=== PATIENT | male | born 1955 | race Caucasian/White ===

== ENCOUNTER 2017-03-19 20:47 | Emergency (ER) | payer BC ==
[2017-03-19] MEDS ORDERED: BACIGUENT PACKET TP ONE (22:12)
[2017-03-19] MEDS ORDERED: TENIVAC VIAL IM ONE ×2 (22:12→22:23)
[2017-03-19] MEDS ORDERED: XYLOCAINE 1% HCL 20 ML MDV IJ ONE (22:12)
[2017-03-19] MEDS ORDERED: Rocephin 1000 MG INJ IM ONE (22:13)
[2017-03-19] MEDS ORDERED: NORCO 5/325 MG PO ONE (22:14)
[2017-03-19] MEDS ORDERED: BACIGUENT PACKET ONE (22:20)
--- NOTE | 2017-03-19 22:20 | ERPHSYRPT ---
- History of Present Illness Time Seen by Provider: 03/19/17 22:09 Source: patient Exam Limitations: no limitations Physician History: ABOUT 90 MINUTES AGO AT HOME PT WAS GRINDING A NEW CLEAN PIECE OF METAL. THE APPLIED ANTHROPOLOGIST SLIPPED AND LACERATED PT'S LEFT INDEX FINGER. LAST TETANUS IS UNKNOWN. PT DENIES NUMBNESS AT THE LEFT INDEX FINGER TIP. Allergies/Adverse Reactions: No Known Drug Allergies Allergy (Verified 03/19/17 22:20) Home Medications: Enalapril Maleate [Vasotec] 20 mg PO BID 12/24/13 [History] Hydrochlorothiazide 25 mg [hydroDIURIL 25 MG] 25 mg PO DAILY 12/24/13 [ History] Metformin HCl 1000 mg [Glucophage 1000 MG] 1,000 mg PO BID 12/24/13 [History] Atorvastatin Calcium 40 mg PO DAILY 06/10/14 [History] Meloxicam 15 mg [Meloxicam 15 MG] 15 mg PO DAILY 06/10/14 [History] Metoprolol Tartrate 100 mg PO DAILY 06/10/14 [History] Amlodipine Besylate 5 mg [Norvasc 5 mg] 0 mg PO HS 03/19/17 [History] Cetirizine HCl [Zyrtec] 10 mg PO HS 03/19/17 [History] Hx Tetanus, Diphtheria Vaccination/Date Given: Yes Hx Influenza Vaccination/Date Given: No Hx Pneumococcal Vaccination/Date Given: No - Review of Systems Skin: Other (LACERATION OF THE LEFT INDEX FINGER TONIGHT.) - Past Medical History Pertinent Past Medical History: Yes Neurological History: Peripheral Neuropathy Cardiac History: High Cholesterol, Hypertension Endocrine Medical History: Diabetes Type II Other Medical History: neuropathy - Past Surgical History Past Surgical History: Yes Cardiac: CABG Gastrointestinal: Appendectomy Other Surgical History: tonsillectomy, sinus surgery, - Social History Smoking Status: Never smoker Exposure to second hand smoke: No Drug Use: none Patient Lives Alone: No - Nursing Vital Signs Nursing Vital Signs: Initial Vital Signs Temperature 98.2 F Temperature Source Oral Pulse Rate 60 Respiratory Rate 16 Blood Pressure [] 139/95 Pain Intensity 3 - Physical Exam General Appearance: alert Shoulder Exam: normal ROM Elbow/Forearm Exam: normal ROM Wrist Exam: normal ROM Hand Exam: normal ROM, laceration (1.5 CM LACERATION OVER THE EXTENSOR ASPECT OF THE INDEX FINGER PIP; LEFT INDEX FINGER HAS FULL ROM, SENSATION AND GOOD CAPILLARY REFILL AT THE TIP.) Neuro/Tendon Exam: normal sensation, normal motor functions Mental Status Exam: alert, cooperative SpO2 Interpretation: normal SpO2: 94 Oxygen Delivery: Room Air Procedures - Laceration/Wound Repair Left Hand Wound Location: Left, hand (INDEX FINGER ) Wound Length (cm): 1.5 Wound's Depth, Shape: superficial Wound Explored: clean Irrigated: Yes Hibiclens Prep: Yes Anesthesia: 1% Lidocaine Volume Anesthetic (ccs): 1 Wound Repaired With: sutures Suture Size/Type: 4-0, prolene Number of Sutures: 5 Layer Closure?: No - Course Nursing assessment & vital signs reviewed: Yes - Radiology Exams Left Hand X-ray Interpretation: Interpreted by me, No Fracture Ordered Tests: Active Orders 24 hr Category Date Time Status Prepare for Sutures STAT Care 03/19/17 22:12 Active Sutures STAT Care 03/19/17 22:13 Active Wound Care STAT Care 03/19/17 22:12 Active HAND (MINIMUM 3 VIEWS) Stat Exams 03/19/17 22:14 Taken Medication Summary Discontinued Medications Generic Name Dose Route Start Last Admin Trade Name Freq PRN Reason Stop Dose Admin Hydrocodone Bitart/Acetaminophen 1 tab 03/19/17 22:14 03/19/17 22:29 [place] 5/325 Mg PO 03/19/17 22:15 1 tab STAT ONE Administration Hydrocodone Bitart/Acetaminophen Confirm 03/19/17 22:22 [place] 5/325 Mg Administered 03/19/17 22:23 Dose 1 tab .ROUTE .STK-MED ONE Bacitracin 0.9 gm 03/19/17 22:12 03/19/17 22:30 Baciguent Packet TP 03/19/17 22:13 1 gm STAT ONE Administration Bacitracin Confirm 03/19/17 22:20 [place]uent Packet Administered 03/19/17 22:21 Dose 1 gm .ROUTE .STK-MED ONE Ceftriaxone Sodium 1,000 mg 03/19/17 22:13 03/19/17 22:28 Rocephin 1000 Mg Inj IM 03/19/17 22:14 1,000 mg STAT ONE Administration Ceftriaxone Sodium Confirm 03/19/17 22:22 Rocephin 1000 Mg Inj Administered 03/19/17 22:23 Dose 1,000 mg .ROUTE .STK-MED ONE Lidocaine HCl 5 ml 03/19/17 22:12 03/19/17 22:29 Xylocaine 1% Hcl 20 Ml Mdv IJ 03/19/17 22:13 5 ml STAT ONE Administration Lidocaine HCl Confirm 03/19/17 22:23 Xylocaine 1% Hcl 20 Ml Mdv Administered 03/19/17 22:24 Dose 1 ml .ROUTE .STK-MED ONE Lidocaine HCl Confirm 03/20/17 00:05 Xylocaine 1% Hcl 20 Ml Mdv Administered 03/20/17 00:06 Dose 1 ml .ROUTE .STK-MED ONE Tetanus/Diphtheria Toxoids Adsorbed 0.5 ml 03/19/17 22:12 03/19/17 22:44 Tenivac Vial IM 03/19/17 22:13 0.5 ml .ONCE ONE Administration Tetanus/Diphtheria Toxoids Adsorbed Confirm 03/19/17 22:23 Tenivac Vial Administered 03/19/17 22:24 Dose 0.5 ml IM .STK-MED ONE - Departure Time of Disposition: 00:32 Departure Disposition: Home Clinical Impression: 1.5 CM LACERATION OF THE LEFT INDEX FINGER Condition: Fair Critical Care Time: No Referrals: JAYNE FUENTES MD [Primary Care Provider] - Instructions: Care for a Laceration After Repair Additional Instructions: FOLLOW UP WITH PRIVATE DOCTOR TOMORROW. KEEP CLEAN & DRY. NEOSPORIN & BANDAGE DAILY TO LEFT INDEX FINGER WOUND FOR 10 DAYS. HAVE SUTURES REMOVED IN 10 DAYS. Prescriptions: Cephalexin Monohydrate [Keflex] 500 mg PO TID #30 capsule
[2017-03-19] MEDS ORDERED: Rocephin 1000 MG INJ ONE (22:22)
[2017-03-19] MEDS ORDERED: NORCO 5/325 MG ONE (22:22)
[2017-03-19] MEDS ORDERED: XYLOCAINE 1% HCL 20 ML MDV ONE (22:23)
[2017-03-20] MEDS ORDERED: XYLOCAINE 1% HCL 20 ML MDV ONE (00:05)
[2017-03-20 00:50] VITALS: BP 145/78; PULSE 61; O2SAT 97
--- NOTE | 2017-03-20 08:57 | XRAY ---
Indication: Laceration. Comparison: None 3 views of the left hand demonstrates distal second finger soft tissue laceration with overlying bandage material. No other bony, articular, or soft tissue abnormalities.
== END 2017-03-20 00:50 | disposition home or self-care (01) ==
LOC: ED 20:47
PROC: 0HQGXZZ Repair Left Hand Skin, External Approach (ICD-10-PCS; principal; 2017-03-19)
DX: S61.211A Laceration without foreign body of left index finger without damage to nail, initial encounter (principal); W31.89XA Contact with other specified machinery, initial encounter; E78.00 Pure hypercholesterolemia, unspecified; I10 Essential (primary) hypertension; E11.9 Type 2 diabetes mellitus without complications; Z79.899 Other long term (current) drug therapy
CPT/HCPCS: 12001; 73130; 90471; 90714; 96372; 99284; J0696; A9270-GY

== ENCOUNTER 2018-08-25 22:36 | Observation (INO) | payer BC ==
--- NOTE | 2018-08-25 23:20 | ERPHSYRPT ---
- History of Present Illness Time Seen by Provider: 08/25/18 23:17 Historian: patient, family Patient Subjective Stated Complaint: pt states about 6 pm he felt hot, left side of face felt numb, sweaty, and nauseous, has heaviness in his chest and a CORTES. saw Dr. Hooks on the and was sent for a chem stress test on the which was abnormal and showed afib, appt scheduled to see Dr. glaser wed. 08/26 Triage Nursing Assessment: pt brought to 3 after nurse assist getting pt out of family car at pt entrance. pt A/O, states no pain but heaviness in chest, nauseated. resp easy. SR on monitor. Physician History: The patient is a 63-year-old male with his complaining of a sudden onset of chest tightness and not feeling well around 6 PM today or 5 hours ago. Earlier in the day he vomited. He has a cardiology appointment tomorrow and was told if anything happens today he is to come to the ER immediately. He denies shortness of breath. He denies sweating. He denies chest pain but he says his chest is tight. He denies lightheadedness. His past medical history is significant for A. fib, hypertension, high cholesterol, diabetes, and arthritis. Timing/Duration: today, hour(s) (5), gradual onset, worse Activities at Onset: none Quality: tightness Location: central Chest Pain Radiation: no radiation Severity of Pain-Max: none Severity of Pain-Current: none Modifying Factors: Improves With: nothing Associated Symptoms: nausea, vomiting, No abdominal pain, No dizziness Prior Chest Pain/Cardiac Workup: no prior chest pain Nitro Today/Relief: no nitro taken today Aspirin Treatment Today: 81 mg x 4, provided by ED Allergies/Adverse Reactions: No Known Drug Allergies Allergy (Verified 03/19/17 22:20) Home Medications: Enalapril Maleate [Vasotec] 20 mg PO BID 12/24/13 [History] Hydrochlorothiazide 25 mg [hydroDIURIL 25 MG] 25 mg PO DAILY 12/24/13 [ History] Metformin HCl 1000 mg [Glucophage 1000 MG] 1,000 mg PO BID 12/24/13 [History] Atorvastatin Calcium 40 mg PO DAILY 06/10/14 [History] Meloxicam 15 mg [Meloxicam 15 MG] 15 mg PO DAILY 06/10/14 [History] Metoprolol Tartrate 100 mg PO DAILY 06/10/14 [History] Amlodipine Besylate 5 mg [Norvasc 5 mg] 0 mg PO HS 03/19/17 [History] Cetirizine HCl [Zyrtec] 10 mg PO HS 03/19/17 [History] Hx Tetanus, Diphtheria Vaccination/Date Given: Yes Hx Influenza Vaccination/Date Given: No Hx Pneumococcal Vaccination/Date Given: No Immunizations Up to Date: Yes - Review of Systems Constitutional: No Fever, No Chills Eyes: No Symptoms Ears, Nose, & Throat: No Symptoms Respiratory: No Cough, No Dyspnea Cardiac: No Chest Pain, No Edema, No Syncope Abdominal/Gastrointestinal: No Abdominal Pain, No Nausea, No Vomiting, No Diarrhea Genitourinary Symptoms: No Dysuria Musculoskeletal: No Back Pain, No Neck Pain Skin: No Rash Neurological: No Dizziness, No Focal Weakness, No Sensory Changes Psychological: No Symptoms Endocrine: No Symptoms Hematologic/Lymphatic: No Symptoms Immunological/Allergic: No Symptoms All Other Systems: Reviewed and Negative - Past Medical History Pertinent Past Medical History: Yes Neurological History: Peripheral Neuropathy Cardiac History: Hypertension Respiratory History: No Pertinent History Endocrine Medical History: Diabetes Type II Musculoskeletal History: Fractures, Osteoarthritis Psycho-Social History: No Pertinent History Other Medical History: CABG x2, 1999 - Past Surgical History Past Surgical History: Yes Cardiac: CABG Gastrointestinal: Appendectomy Other Surgical History: tonsillectomy, sinus surgery, - Social History Smoking Status: Never smoker Exposure to second hand smoke: No Drug Use: none Patient Lives Alone: No - Nursing Vital Signs Nursing Vital Signs: Initial Vital Signs Temperature 98.6 F 08/25/18 22:36 Pulse Rate 59 L 08/25/18 22:36 Respiratory Rate 18 08/25/18 22:36 Blood Pressure 185/101 08/25/18 22:36 O2 Sat by Pulse Oximetry 96 08/25/18 22:36 Pain Scale Pain Intensity 2 - Physical Exam General Appearance: mild distress Eye Exam: PERRL/EOMI, eyes nml inspection Ears, Nose, Throat Exam: normal ENT inspection, moist mucous membranes Neck Exam: normal inspection, non-tender, supple, full range of motion Respiratory Exam: normal breath sounds, lungs clear, No respiratory distress Cardiovascular Exam: regular rate/rhythm, normal heart sounds Gastrointestinal/Abdomen Exam: soft, No tenderness, No mass Rectal Exam: not done Back Exam: normal inspection, No CVA tenderness, No vertebral tenderness Extremity Exam: normal inspection, normal range of motion Neurologic Exam: alert, oriented x 3, cooperative, normal mood/affect, sensation nml, No motor deficits Skin Exam: normal color, warm, dry SpO2 Interpretation: normal SpO2: 96 Oxygen Delivery: Room Air - Course EKG Interpreted by Me: RATE, Sinus Rhythm, A-fib, NORMAL INTERVALS, NORMAL QRS, NORMAL ST-T - Radiology Exams Chest X-ray Interpretation: Interpreted by me, Negative Ordered Tests: Active Orders 24 hr Category Date Time Status Manager Social Media STAT Care 08/25/18 23:22 Active EKG-ER Only STAT Care 08/25/18 23:22 Active IV Insertion STAT Care 08/25/18 23:22 Active Oxygen-ED Only NASAL CANNULA 2 lpm Care 08/25/18 23:22 Active Pulse Oximetry (ED) STAT Care 08/25/18 23:22 Active CHEST 1 VIEW (PORTABLE) Stat Exams 08/25/18 23:22 Taken TROPONIN Q3H Lab 08/26/18 02:30 Ordered TROPONIN Q3H Lab 08/26/18 05:30 Ordered TROPONIN Q3H Lab 08/26/18 08:30 Ordered TROPONIN Q3H Lab 08/26/18 11:30 Ordered Medication Summary Discontinued Medications Generic Name Dose Route Start Last Admin Trade Name Freq PRN Reason Stop Dose Admin Aspirin 324 mg 08/25/18 23:22 08/25/18 23:47 Baby Aspirin 81 Mg Chew PO 08/25/18 23:23 324 mg STAT ONE Administration Aspirin Confirm 08/25/18 23:45 Baby Aspirin 81 Mg Chew Administered 08/25/18 23:46 Dose 324 mg .ROUTE .STK-MED ONE Lab/Rad Data: Laboratory Result Diagrams 08/25/18 00:06 08/25/18 00:06 Laboratory Results 08/25/18 08/25/18 08/25/18 Range/Units 00:06 00:06 00:06 WBC 8.1 (4.0-10.5) K/mm3 RBC 6.02 H (4.1-5.6) M/mm3 Hgb 17.3 (12.5-18.0) gm/dl Hct 51.7 H (42-50) % MCV 85.9 (78-100) fl MCH 28.7 (26-32) pg MCHC 33.5 (32-36) g/dl RDW 14.9 H (11.5-14.0) % Plt Count 196 (150-450) K/mm3 MPV 11.3 H (6-9.5) fl Gran % 57.8 (36.0-66.0) % Eos # (Auto) 0.32 (0-0.5) Absolute Lymphs (auto) 2.28 (1.0-4.6) Absolute Monos (auto) 0.81 (0.0-1.3) Lymphocytes % 28.1 (24.0-44.0) % Monocytes % 10.0 (0.0-12.0) % Eosinophils % 3.9 (0.00-5.0) % Basophils % 0.2 (0.0-0.4) % Absolute Granulocytes 4.68 (1.4-6.9) Basophils # 0.02 (0-0.4) Sodium 138 (137-145) mmol/L Potassium 3.3 L (3.5-5.1) mmol/L Chloride 100 (98-107) mmol/L Carbon Dioxide 26 (22-30) mmol/L Anion Gap 15.6 H (5-15) MEQ/L BUN 21 H (9-20) mg/dL Creatinine 0.97 (0.66-1.25) mg/dL Estimated GFR > 60.0 ML/MIN Glucose 104 (74-106) mg/dL Calcium 9.2 (8.4-10.2) mg/dL Total Bilirubin 0.80 (0.2-1.3) mg/dL AST 24 (17-59) U/L ALT 20 (0-50) U/L Alkaline Phosphatase 137 H (38-126) U/L Troponin I < 0.012 (0.000-0.034) ng/mL NT-Pro-B Natriuret Pep 438 (0-900) pg/mL Serum Total Protein 8.1 (6.3-8.2) g/dL Albumin 4.6 (3.5-5.0) g/dL - Progress Progress: improved Air Movement: good Blood Culture(s) Obtained: No Antibiotics given: No Discussed with Dr.: Manuel (for Dr Hooks) Will see patient in: hospital (observation) Counseled pt/family regarding: lab results, diagnosis, rad results - Departure Time of Disposition: 01:10 Departure Disposition: Observation (per Dr Manuel for Dr Hooks) Clinical Impression: Chest pain Condition: Stable Critical Care Time: No Referrals: JAYNE HOOKS MD [Primary Care Provider] -
[2018-08-25] MEDS ORDERED: BABY ASPIRIN 81 MG CHEW PO ONE (23:22)
[2018-08-25] MEDS ORDERED: BABY ASPIRIN 81 MG CHEW ONE (23:45)
[2018-08-26 00:11] LABS: BASOPHIL % 0.2 % (0.0-0.4); Basophil (Absolute #) 0.02 (0-0.4); Eosinophil % 3.9 % (0.00-5.0); Eosinophil (Absolute #) 0.32 (0-0.5); Granulocyte Absolute (ANC) 4.68 (1.4-6.9); Granulocytes % 57.8 % (36.0-66.0); Hematocrit 51.7 % (42-50); Hemoglobin 17.3 gm/dl (12.5-18.0); Lymphocyte (Absolute #) 2.28 (1.0-4.6); Lymphocytes % 28.1 % (24.0-44.0); Mean Cell Volume 85.9 fl (78-100); Mean Corpuscular Hemoglobin 28.7 pg (26-32); Mean Corpuscular Hgb Concent. 33.5 g/dl (32-36); Mean Platelet Volume 11.3 fl (6-9.5); Monocyte (Absolute #) 0.81 (0.0-1.3); Platelet Count 196 K/mm3 (150-450); Red Blood Count 6.02 M/mm3 (4.1-5.6); Red Cell Distribution Width 14.9 % (11.5-14.0); White Blood Count 8.1 K/mm3 (4.0-10.5)
[2018-08-26 00:38] LABS: ALBUMIN 4.6 g/dL (3.5-5.0); ALKALINE PHOSPHATASE 137 U/L (38-126); ANION GAP 15.6 MEQ/L (5-15); BLOOD UREA NITROGEN 21 mg/dL (9-20); CHLORIDE 100 mmol/L (98-107); Calcium 9.2 mg/dL (8.4-10.2); Carbon Dioxide 26 mmol/L (22-30); Creatinine 1 0.97 mg/dL (0.66-1.25); Glucose 104 mg/dL (74-106); NT PRO BNP 438 pg/mL (0-900); Potassium 3.3 mmol/L (3.5-5.1); SGOT/AST 24 U/L (17-59); SGPT/ALT 20 U/L (0-50); SODIUM 138 mmol/L (137-145); Total Protein 8.1 g/dL (6.3-8.2)
[2018-08-26] MEDS ORDERED: Klor Con 10 MEQ PO ONE ×2 (01:20→01:23)
[2018-08-26] MEDS ORDERED: Zofran 4 MG/2 ML VIAL IV PRN (02:32)
[2018-08-26] MEDS ORDERED: MAALOX ES 30 ML UNIT DOSE PO PRN (02:32)
[2018-08-26] MEDS ORDERED: TYLENOL 325 MG PO PRN (02:32)
[2018-08-26] MEDS ORDERED: MILK OF MAGNESIA 30 ML PO PRN (02:32)
[2018-08-26] MEDS ORDERED: Senokot-S Tablet PO PRN (02:32)
[2018-08-26 06:45] LABS: Risk Ratio 3.8
[2018-08-26 07:25] VITALS: BP 157/83; PULSE 62; O2SAT 91
--- NOTE | 2018-08-26 09:11 | XRAY ---
Indication: Chest pain. Chest tightness. Comparison: None Portable chest remains clear again with a few incidental calcified granulomas. Heart is not enlarged for AP portable technique and demonstrates CABG surgery. Bony thorax intact with minimal degenerative changes. Impression: Nonacute chest with chronic features.
[2018-08-26] MEDS ORDERED: Sodium Chloride 0.9% 10 ML FLUSH Syringe IV PRN (09:12)
[2018-08-26] MEDS ORDERED: Ecotrin 325 MG PO SCH (10:00)
--- NOTE | 2018-08-26 11:05 | SSS ---
DISCHARGE DIAGNOSES: 1) ANGINA PECTORIS. 2) CORONARY ARTERY DISEASE. HISTORY: The patient is a 63 year-old white male patient who reportedly had some chest heaviness beginning approximately 2000 hours lasting to approximately midnight. He presented himself to the emergency room. He apparently had a work up has been in process having had a Cardiolite stress test which showed some abnormalities. He had been set up to see Dr. Conroy. He actually has an appointment at 1000 hours this morning to see him. The patient reports that he currently has no chest pain. His troponins have all been negative. He does have history of coronary artery bypass grafting in 1999 that he had in [place]. He does not follow up with a lumber straightened as he did not want to see a lumber straightened after his initial evaluation and treatment so he has not been evaluated for several years. His history is otherwise significant for diabetes mellitus type 2. He has diabetic neuropathy, hypertension. He had some problems with his left foot with a fracture. HOME MEDICATIONS: Currently include amlodipine 5 mg a day. He is on Augmentin 875 mg b.i.d. for chest cold. Eliquis 5 mg b.i.d., aspirin 81 mg a day, atorvastatin 40 mg a day, Invokana 300 mg daily, Zyrtec 10 mg daily, Vasotec 20 mg b.i.d., gabapentin 600 mg at night, glimepiride 2 mg daily, levothyroxine 75 mcg daily, Meloxicam 15 mg daily, Metformin 1,000 mg b.i.d. ALLERGIES: NKDA. PHYSICAL EXAMINATION: Revealed an obese white male patient who is quite large 6' 5". HEENT: Normocephalic, atraumatic. Pupils equal round reactive to light. Extraocular movements intact. Oropharynx is pink and moist. NECK: Supple without lymphadenopathy, thyromegaly or JVD. CHEST: Clear to auscultation with good air movement bilaterally. HEART: Regular rate and rhythm without murmurs, rubs or gallops. ABDOMEN: Soft, nontender, nondistended without hepatosplenomegaly or masses. EXTREMITIES: Without cyanosis or clubbing. There is some edema present. LAB DATA AND TESTS: His troponins were all negative at less than 0.02 at 0600 hours this morning. His lipid panel showed HDL of 25, LDL 63. He had random glucose of 104, BUN 21, creatinine 0.97. Potassium slightly low at 3.3. Electrolytes normal. Liver enzymes were normal. ProBNP 438. His chest x-ray was nonacute with chronic features. EKG shows sinus braydycardia with no acute changes. ASSESSMENT: A patient with unstable angina pectoris with abnormal Cardiolite stress test with appointment to see lumber straightened this morning. He has ruled out of myocardial infarction. We will discharge him and try to get him to see Dr. Conroy as soon as we can this morning. We are expediting his discharge so he can make that appointment. He will follow up with Dr. Hooks in his office next week as well and continue his home medications.
[2018-08-26] MEDS ORDERED: Sodium Chloride 0.9% 10 ML FLUSH Syringe IV SCH (14:00)
== END 2018-08-26 09:52 | disposition home or self-care (01) ==
LOC: ED 22:36 → MED SURG 08-26 02:24
PROVIDERS: ADMIT Family Medicine; ATTEND Family Medicine
DX: I20.0 Unstable angina (principal); I25.810 Atherosclerosis of coronary artery bypass graft(s) without angina pectoris; E11.42 Type 2 diabetes mellitus with diabetic polyneuropathy; Z79.4 Long term (current) use of insulin; I10 Essential (primary) hypertension; E78.00 Pure hypercholesterolemia, unspecified; Z79.01 Long term (current) use of anticoagulants; Z79.899 Other long term (current) drug therapy
CPT/HCPCS: 36000; 36415; 71045; 80053; 80061; 82962; 83721; 83880; 84484; 85025; 93005; 93041; 93268; 99285; A9270-GY; G0378

== ENCOUNTER 2019-05-28 18:05 | Observation (INO) | payer MEDICARE, BC ==
--- NOTE | 2019-05-28 18:54 | ERPHSYRPT ---
- History of Present Illness Time Seen by Provider: 05/28/19 18:35 Historian: patient Exam Limitations: clinical condition Patient Subjective Stated Complaint: Pt reports that he became really weak and diaphoretic today and so he checked his blood pressure and noticed that his pulse was fluctuating between approx 35 and 65 Triage Nursing Assessment: Pt was wheeled in via a wheelchair, unstable gait due to past surgeries on his left foot, edema in left leg which is normal since the surgery, hypertensive, pulses normal, S1-S2 sounds heard, skin normal and dry, denies chest pain Physician History: PATIENT WITH A HISTORY OF CORONARY ARTERY DISEASE, HYPERTENSION, TYPE 2 DIABETES , ARTIAL FIBRILLATION, MORBID OBESITY, CORONARY BYPASS SURGERY 1999, COMPLAINS OF ACUTE OF DIAPHORESIS, LOW HEART RATE ASSOCIATED WITH INDIGESTION THIS AFTERNOON. DENIES CHEST PAIN, PALPITATIONS, JAW PAIN OR ARM HEAVINESS. PATIENT TOOK 1 BABY ASPIRIN TODAY ALONG WITH ELIQUIS FOR TREATMENT OF ATRIAL FIBRILLATION Timing/Duration: today Activities at Onset: none Quality: fullness Location: epigastric Chest Pain Radiation: no radiation Severity of Pain-Max: mild Severity of Pain-Current: mild Modifying Factors: Improves With: nothing Associated Symptoms: diaphoresis, other (LOW HEART RATE) Prior Chest Pain/Cardiac Workup: cardiac cath (IN 08/2018 AND CORONARY ARTERY BYPASS GRAFT 1999) Nitro Today/Relief: no nitro taken today Aspirin Treatment Today: 81 mg x 1 Allergies/Adverse Reactions: oxycodone Adverse Reaction (Intermediate, Verified 05/28/19 18:30) Itching N/V,light headed Home Medications: Amlodipine Besylate 5 mg PO DAILY 05/28/19 [History] Apixaban [Eliquis] 5 mg PO BID 05/28/19 [History] Aspirin EC 81 mg [Ecotrin 81 mg] 81 mg PO DAILY 05/28/19 [History] Atorvastatin Calcium [Lipitor] 80 mg PO HS 05/28/19 [History] Canagliflozin [Invokana] 300 mg PO DAILY 05/28/19 [History] Cetirizine HCl 10 mg PO DAILY 05/28/19 [History] Gabapentin 600 mg PO HS 05/28/19 [History] Glimepiride 2 mg [Amaryl 2 MG] 2 mg PO DAILY 05/28/19 [History] Levothyroxine Sodium 75 mcg PO DAILY 05/28/19 [History] Metformin HCl 1,000 mg PO BID 05/28/19 [History] Metoprolol Succinate 100 mg [Toprol Xl 100 MG] 100 mg PO DAILY 05/28/19 [ History] Sacubitril/Valsartan [Entresto 24 mg-26 mg Tablet] 1 tab PO BID 05/28/19 [ History] hydroCHLOROthiazide [Hydrochlorothiazide] 25 mg PO DAILY 05/28/19 [History] Hx Tetanus, Diphtheria Vaccination/Date Given: Yes Hx Influenza Vaccination/Date Given: No Hx Pneumococcal Vaccination/Date Given: No - Review of Systems Constitutional: No Fever, No Chills Eyes: No Symptoms Ears, Nose, & Throat: No Symptoms Respiratory: No Symptoms, No Cough, No Dyspnea Cardiac: Chest Pain (DESCRIBES INDIGESTION), Other (DIAPHORESIS AND LOW HEART RATE), No Edema, No Syncope Abdominal/Gastrointestinal: Other (INDIGESTION), No Abdominal Pain, No Nausea, No Vomiting, No Diarrhea Genitourinary Symptoms: No Dysuria Musculoskeletal: No Back Pain, No Neck Pain Skin: No Rash Neurological: No Dizziness, No Focal Weakness, No Sensory Changes Psychological: No Symptoms Endocrine: No Symptoms All Other Systems: Reviewed and Negative - Past Medical History Pertinent Past Medical History: Yes Neurological History: Peripheral Neuropathy ENT History: No Pertinent History Cardiac History: Arrhythmia, Hypertension Respiratory History: No Pertinent History Endocrine Medical History: Diabetes Type II Musculoskeletal History: Fractures, Osteoarthritis GI Medical History: No Pertinent History History: No Pertinent History Psycho-Social History: No Pertinent History Male Reproductive Disorders: No Pertinent History Other Medical History: CABG x2, 1999. Fracture left foot/hardware/plate. Afib - Past Surgical History Past Surgical History: Yes Neuro Surgical History: No Pertinent History Cardiac: CABG Respiratory: Chest Surgery Gastrointestinal: Appendectomy Genitourinary: No Pertinent History Musculoskeletal: Orthopedic Surgery Male Surgical History: No Pertinent History Other Surgical History: tonsillectomy, sinus surgery,. Fracture left foot/ hardware/plate-diabetic fx,left foot surgery - Social History Smoking Status: Never smoker Exposure to second hand smoke: No Drug Use: none Patient Lives Alone: No - Nursing Vital Signs Nursing Vital Signs: Initial Vital Signs Temperature 98.8 F 05/28/19 18:17 Pulse Rate 61 05/28/19 18:17 Blood Pressure 151/84 05/28/19 18:17 O2 Sat by Pulse Oximetry 95 05/28/19 18:17 Pain Scale Pain Intensity 1 - Physical Exam General Appearance: no apparent distress, alert Eye Exam: PERRL/EOMI, eyes nml inspection Ears, Nose, Throat Exam: normal ENT inspection, moist mucous membranes Neck Exam: normal inspection, non-tender, supple, full range of motion Respiratory Exam: normal breath sounds, lungs clear, No respiratory distress Cardiovascular Exam: regular rate/rhythm, normal heart sounds Gastrointestinal/Abdomen Exam: soft, normal bowel sounds, No tenderness, No mass Back Exam: normal inspection, No CVA tenderness, No vertebral tenderness Extremity Exam: normal inspection, normal range of motion Neurologic Exam: alert, oriented x 3, cooperative, normal mood/affect, sensation nml, No motor deficits Skin Exam: normal color, warm, dry SpO2 Interpretation: normal SpO2: 95 - Course EKG Interpreted by Me: RATE, Sinus Rhythm, Sinus Deejay, Non-specific ST Changes (OCCASIONAL ECTOPY) - Radiology Exams Chest X-ray Interpretation: Interpreted by me (ELEVATION RIGHT HEMIDIAPHRAM, NO EVIDENCE OF INFILTRATES PREVIOUS STERNOTOMY) Ordered Tests: Active Orders 24 hr Category Date Time Status Environmental Emergencies Assistant STAT Care 05/28/19 18:56 Active EKG-ER Only STAT Care 05/28/19 18:55 Active IV Insertion STAT Care 05/28/19 18:55 Active Oxygen-ED Only Nasal Cannula 2 lpm Care 05/28/19 18:55 Active Pulse Oximetry (ED) STAT Care 05/28/19 18:55 Active CHEST 1 VIEW (PORTABLE) Stat Exams 05/28/19 18:55 Taken CBC W DIFF Stat Lab 05/28/19 19:04 Completed CMP Stat Lab 05/28/19 19:04 Completed MAGNESIUM Stat Lab 05/28/19 18:58 Completed NT PRO BNP Stat Lab 05/28/19 19:04 Completed PROTIME WITH INR Stat Lab 05/28/19 19:04 Completed TROPONIN Q3H Lab 05/28/19 19:04 Completed TROPONIN Q3H Lab 05/28/19 22:00 Ordered TROPONIN Q3H Lab 05/29/19 01:00 Ordered TROPONIN Q3H Lab 05/29/19 04:00 Ordered TROPONIN Q3H Lab 05/29/19 07:00 Ordered Transfer Order Routine Transfer 05/28/19 Ordered Medication Summary Generic Name Dose Route Start Last Admin Trade Name Freq PRN Reason Stop Dose Admin Sodium Chloride 1,000 mls @ 50 mls/hr 05/28/19 19:00 05/28/19 19:08 Sodium Chloride 0.9% 1000 Ml IV 06/27/19 18:59 50 mls/hr .Q20H CANDY Administration Discontinued Medications Generic Name Dose Route Start Last Admin Trade Name Chelsie PRN Reason Stop Dose Admin Aspirin 243 mg 05/28/19 18:55 05/28/19 19:01 Baby Aspirin 81 Mg Chew PO 05/28/19 18:56 243 mg STAT ONE Administration Aspirin Confirm 05/28/19 19:02 Baby Aspirin 81 Mg Chew Administered 05/28/19 19:03 Dose 243 mg .ROUTE .STK-MED ONE Nitroglycerin 0.4 mg 05/28/19 18:55 05/28/19 19:01 Nitrostat 0.4 Mg (Ed) SL 05/28/19 18:56 0.4 mg STAT ONE Administration Nitroglycerin 1 gm 05/28/19 18:55 05/28/19 19:08 Nitro-Bid 2% Ud Packets TOP 05/28/19 18:56 1 gm STAT ONE Administration Nitroglycerin Confirm 05/28/19 19:03 Nitro-Bid 2% Ud Packets Administered 05/28/19 19:04 Dose 1 gm .ROUTE .STK-MED ONE Nitroglycerin Confirm 05/28/19 19:03 Nitrostat 0.4 Mg (Ed) Administered 05/28/19 19:04 Dose 0.4 mg SL .STK-MED ONE Potassium Chloride 40 meq 05/28/19 20:00 05/28/19 20:04 Klor Con 10 Meq PO 05/28/19 20:01 40 meq STAT ONE Administration Potassium Chloride Confirm 05/28/19 20:03 Klor Con 10 Meq Administered 05/28/19 20:04 Dose 40 meq PO .STK-MED ONE Lab/Rad Data: Laboratory Result Diagrams 05/28/19 19:04 05/28/19 19:04 Laboratory Results 05/28/19 05/28/19 05/28/19 Range/Units 19:04 19:04 19:04 WBC (4.0-10.5) K/mm3 RBC (4.1-5.6) M/mm3 Hgb (12.5-18.0) gm/dl Hct (42-50) % MCV (78-100) fl MCH (26-32) pg MCHC (32-36) g/dl RDW (11.5-14.0) % Plt Count (150-450) K/mm3 MPV (6-9.5) fl Gran % (36.0-66.0) % Eos # (Auto) (0-0.5) Absolute Lymphs (auto) (1.0-4.6) Absolute Monos (auto) (0.0-1.3) Lymphocytes % (24.0-44.0) % Monocytes % (0.0-12.0) % Eosinophils % (0.00-5.0) % Basophils % (0.0-0.4) % Absolute Granulocytes (1.4-6.9) Basophils # (0-0.4) PT 14.0 H (8.83-12.87) SECONDS INR 1.23 (0.8-3.0) Sodium 140 (137-145) mmol/L Potassium 3.2 L (3.5-5.1) mmol/L Chloride 105 (98-107) mmol/L Carbon Dioxide 25 (22-30) mmol/L Anion Gap 13.2 (5-15) MEQ/L BUN 14 (9-20) mg/dL Creatinine 0.99 (0.66-1.25) mg/dL Estimated GFR > 60.0 ML/MIN Glucose 163 H (74-106) mg/dL Calcium 9.1 (8.4-10.2) mg/dL Magnesium (1.6-2.3) mg/dL Total Bilirubin 0.50 (0.2-1.3) mg/dL AST 19 (17-59) U/L ALT 19 (0-50) U/L Alkaline Phosphatase 84 (38-126) U/L Troponin I < 0.012 (0.000-0.034) ng/mL NT-Pro-B Natriuret Pep 378 (0-900) pg/mL Serum Total Protein 7.4 (6.3-8.2) g/dL Albumin 3.8 (3.5-5.0) g/dL 05/28/19 05/28/19 Range/Units 19:04 18:58 WBC 6.8 (4.0-10.5) K/mm3 RBC 5.70 H (4.1-5.6) M/mm3 Hgb 16.4 (12.5-18.0) gm/dl Hct 50.1 H (42-50) % MCV 87.9 (78-100) fl MCH 28.7 (26-32) pg MCHC 32.7 (32-36) g/dl RDW 15.3 H (11.5-14.0) % Plt Count 203 (150-450) K/mm3 MPV 11.2 H (6-9.5) fl Gran % 53.0 (36.0-66.0) % Eos # (Auto) 0.15 (0-0.5) Absolute Lymphs (auto) 2.35 (1.0-4.6) Absolute Monos (auto) 0.67 (0.0-1.3) Lymphocytes % 34.6 (24.0-44.0) % Monocytes % 9.9 (0.0-12.0) % Eosinophils % 2.2 (0.00-5.0) % Basophils % 0.3 (0.0-0.4) % Absolute Granulocytes 3.61 (1.4-6.9) Basophils # 0.02 (0-0.4) PT (8.83-12.87) SECONDS INR (0.8-3.0) Sodium (137-145) mmol/L Potassium (3.5-5.1) mmol/L Chloride (98-107) mmol/L Carbon Dioxide (22-30) mmol/L Anion Gap (5-15) MEQ/L BUN (9-20) mg/dL Creatinine (0.66-1.25) mg/dL Estimated GFR ML/MIN Glucose (74-106) mg/dL Calcium (8.4-10.2) mg/dL Magnesium 1.7 (1.6-2.3) mg/dL Total Bilirubin (0.2-1.3) mg/dL AST (17-59) U/L ALT (0-50) U/L Alkaline Phosphatase (38-126) U/L Troponin I (0.000-0.034) ng/mL NT-Pro-B Natriuret Pep (0-900) pg/mL Serum Total Protein (6.3-8.2) g/dL Albumin (3.5-5.0) g/dL - Progress Progress Note: ADMINISTERED BABY ASPIRIN X 3, NTG 0.4MG SL, APPLICATION NITROPASTE 1" ANTERIOR CHEST WALL 05/28/19 19:57 MINIMAL RELIEF OF INDIGESTION, ALL LABS REVIEWED AND ARE IN NORMAL LIMITS EXCEPT K-3.2, PATIENT GIVEN KLOR CON 40MEG ORALLY Discussed with Dr.: Manuel (DISCUSSED WITH DR MANUEL AT 1950 FOR OBSERVATION) - Departure Departure Disposition: Observation Clinical Impression: ATYPICAL ANGINA, HYPOKALEMIA Condition: Stable Critical Care Time: No Referrals: JAYNE FUENTES MD [Primary Care Provider] -
[2019-05-28] MEDS ORDERED: NITRO-BID 2% UD PACKETS TOP ONE (18:55)
[2019-05-28] MEDS ORDERED: BABY ASPIRIN 81 MG CHEW PO ONE (18:55)
[2019-05-28] MEDS ORDERED: Nitrostat 0.4 MG (ED) SL ONE ×2 (18:55→19:03)
[2019-05-28] MEDS ORDERED: Sodium Chloride 0.9% 1000 ML 1,000 ML IV SCH (19:00)
[2019-05-28] MEDS ORDERED: BABY ASPIRIN 81 MG CHEW ONE (19:02)
[2019-05-28 19:03] LABS: BASOPHIL % 0.3 % (0.0-0.4); Basophil (Absolute #) 0.02 (0-0.4); Eosinophil % 2.2 % (0.00-5.0); Eosinophil (Absolute #) 0.15 (0-0.5); Granulocyte Absolute (ANC) 3.61 (1.4-6.9); Hematocrit 50.1 % (42-50); Hemoglobin 16.4 gm/dl (12.5-18.0); Lymphocyte (Absolute #) 2.35 (1.0-4.6); Lymphocytes % 34.6 % (24.0-44.0); Mean Cell Volume 87.9 fl (78-100); Mean Corpuscular Hgb Concent. 32.7 g/dl (32-36); Mean Platelet Volume 11.2 fl (6-9.5); Monocyte (Absolute #) 0.67 (0.0-1.3); Monocytes % 9.9 % (0.0-12.0); Platelet Count 203 K/mm3 (150-450); Red Cell Distribution Width 15.3 % (11.5-14.0); White Blood Count 6.8 K/mm3 (4.0-10.5)
[2019-05-28] MEDS ORDERED: NITRO-BID 2% UD PACKETS ONE (19:03)
[2019-05-28 19:04] LABS: Mean Corpuscular Hemoglobin 28.7 pg (26-32)
[2019-05-28 19:09] LABS: INR 1.23 (0.8-3.0)
[2019-05-28 19:23] LABS: ALBUMIN 3.8 g/dL (3.5-5.0); ALKALINE PHOSPHATASE 84 U/L (38-126); ANION GAP 13.2 MEQ/L (5-15); BLOOD UREA NITROGEN 14 mg/dL (9-20); CHLORIDE 105 mmol/L (98-107); Calcium 9.1 mg/dL (8.4-10.2); Carbon Dioxide 25 mmol/L (22-30); Creatinine 1 0.99 mg/dL (0.66-1.25); Glucose 163 mg/dL (74-106); NT PRO BNP 378 pg/mL (0-900); Potassium 3.2 mmol/L (3.5-5.1); SGOT/AST 19 U/L (17-59); SGPT/ALT 19 U/L (0-50); SODIUM 140 mmol/L (137-145); Total Protein 7.4 g/dL (6.3-8.2)
[2019-05-28] MEDS ORDERED: Klor Con 10 MEQ PO ONE ×2 (20:00→20:03)
[2019-05-28] MEDS ORDERED: Senokot-S Tablet PO PRN (20:37)
[2019-05-28] MEDS ORDERED: MILK OF MAGNESIA 30 ML PO PRN (20:37)
[2019-05-28] MEDS ORDERED: Zofran 4 MG/2 ML VIAL IV PRN (20:37)
[2019-05-28] MEDS ORDERED: MAALOX ES 30 ML UNIT DOSE PO PRN (20:37)
[2019-05-28] MEDS ORDERED: Nitrostat 0.4 MG Tablet SL PRN (20:37)
[2019-05-28] MEDS ORDERED: TYLENOL 325 MG PO PRN (20:37)
[2019-05-28] MEDS: Pepcid 20 MG VIAL IV SCH (21:55)
[2019-05-28] MEDS: Glucophage 500 MG PO SCH (21:56)
[2019-05-28] MEDS: ELIQUIS 2.5 MG TABLET PO SCH (21:56)
[2019-05-28] MEDS: NITRO-BID 2% UD PACKETS TOP SCH (21:59)
[2019-05-28] MEDS ORDERED: NEURONTIN 300 MG PO SCH (22:00)
[2019-05-28] MEDS: ENTRESTO 49 MG-51 MG TABLET PO SCH (22:02)
--- NOTE | 2019-05-28 22:41 | XRAY ---
Indication: Diaphoresis. Comparison: September 02, 2018. Portable chest remains clear with incidental overlying monitoring leads. Heart is not enlarged again with CABG surgery. Bony thorax intact again with mild degenerative changes. Impression: Stable nonacute chest with chronic features.
[2019-05-29] MEDS: NITRO-BID 2% UD PACKETS TOP SCH (06:59)
[2019-05-29 07:20] VITALS: BP 143/77; PULSE 53; O2SAT 97
[2019-05-29] MEDS: Glucophage 500 MG PO SCH (08:14)
[2019-05-29] MEDS ORDERED: Toprol-Xl 25MG Tablets PO SCH (10:00)
[2019-05-29] MEDS ORDERED: NORVASC 5 MG PO SCH (10:00)
[2019-05-29] MEDS ORDERED: SYNTHROID 75 MCG PO SCH (10:00)
[2019-05-29] MEDS ORDERED: Toprol Xl 100 MG PO SCH (10:00)
[2019-05-29] MEDS ORDERED: ECOTRIN 81 MG PO SCH (10:00)
[2019-05-29] MEDS ORDERED: hydroDIURIL 25 MG PO SCH (10:00)
[2019-05-29] MEDS ORDERED: Klor Con 10 MEQ PO SCH (10:00)
[2019-05-29] MEDS: ENTRESTO 49 MG-51 MG TABLET PO SCH (10:01)
[2019-05-29] MEDS: Pepcid 20 MG VIAL IV SCH (10:01)
[2019-05-29] MEDS: ELIQUIS 2.5 MG TABLET PO SCH (10:01)
--- NOTE | 2019-05-31 13:15 | SSS ---
DISCHARGE DIAGNOSES: 1) BRADYCARDIA. 2) HISTORY OF CORONARY ARTERY DISEASE. HISTORY: The patient is a 64 year-old white male patient with previous bypass surgery in 1999. He reports he saw his gas booster engineer, Dr. Conroy, about a month ago. He has been doing well. However at home yesterday evening he felt a little bit warm. He thought maybe his blood sugar was low and he checked it and was found to be normal although he noticed his heart rate was fluctuating between 40 to 60. He reports his normal heart rate resting is in the 60's. PAST MEDICAL/SURGICAL HISTORY: Otherwise significant for diabetes mellitus type 2, hypertension, peripheral neuropathy. HOME MEDICATIONS: Amlodipine 5 mg a day, Eliquis 5 mg b.i.d., aspirin 81 mg a day, Lipitor 80 mg at night, Invokana 300 mg a day, cetirizine 10 mg, gabapentin 600 mg at night, glimepiride 2 mg daily, levothyroxine 75 mcg daily, Metformin 1,000 mg b.i.d., metoprolol 100 mg extended release daily, Entresto 24 mg - 26 mg b.i.d. and hydrochlorothiazide. ALLERGIES: OXYCODONE. PHYSICAL EXAMINATION: The patient's vital signs on admission showed temperature 98.8F, pulse 61, respiratory rate 16 and blood pressure 151/84. O2 saturation 95%. HEENT: Normocephalic, atraumatic. Pupils equal round reactive to light. Extraocular movements intact. Oropharynx is pink and moist. NECK: Supple without lymphadenopathy, thyromegaly or JVD. CHEST: Clear to auscultation. There is a midline sternotomy scar present. He is wearing Nitro presently. HEART: No murmurs, rubs or gallops heard. ABDOMEN: Soft. No palpable masses. EXTREMITIES: Without cyanosis, clubbing or edema. NEUROLOGIC: The patient is alert and oriented x3. LAB DATA AND TESTS: Troponins all less than 0.012 on four separate occasions. He had a nonfasting sugar at 163, BUN 14, creatinine 0.99. Electrolytes showed potassium to be slightly low at 3.2. Otherwise electrolytes and liver enzymes were normal. ProBNP was normal. Magnesium 1.7. International normalized ratio was 1.23. CBC showed hemoglobin 16.4, white blood cell count 6,800, PLT count 203,000. EKG shows sinus bradycardia at a rate of 50 on his initial 12 lead with some nonspecific ST-T wave changes and what appears to be possible inferior infarct on the EKG. HOSPITAL COURSE: The patient was admitted to the hospital ren and has done well overnight. He is anxious to go home presently. Having ruled out for myocardial infarction, we will allow the patient to discharge home on his usual home medications. He will be asked to follow up with his gas booster engineer in the next week or two. He reports his gas booster engineer does know about the admission as he called his office prior to coming to the emergency room and was instructed to do so.
== END 2019-05-29 10:15 | disposition home or self-care (01) ==
LOC: ED 18:05 → MED SURG 20:36
PROVIDERS: ADMIT Family Medicine; ATTEND Family Medicine
DX: R00.1 Bradycardia, unspecified (principal); Z86.79 Personal history of other diseases of the circulatory system; E11.9 Type 2 diabetes mellitus without complications; I10 Essential (primary) hypertension; G62.9 Polyneuropathy, unspecified; Z79.01 Long term (current) use of anticoagulants; Z79.899 Other long term (current) drug therapy
CPT/HCPCS: 36415; 71045; 80053; 80061; 82962; 83036; 83721; 83735; 83880; 84484; 85025; 85610; 93005; 93041; 93268; 94760; 94762; 96360; 96361; 99285; G0378; A9270-GY

== ENCOUNTER 2019-12-06 09:31 | Day surgery (SDC) | payer MEDICARE, BC ==
--- NOTE | 2019-12-06 09:29 | HP ---
DATE OF SURGERY: 12/06/2019 HISTORY OF PRESENT ILLNESS: The patient is a 64 year-old with some right back pain, right upper quadrant pain the past couple of weeks or so with some gas and bloating and gallstone on CT scan. He takes some PRN hydrocodone that helps a little bit. Occasionally he has nausea and vomiting after eating. PAST MEDICAL HISTORY: Hypertension, diabetes, hypothyroidism, heart disease. PAST SURGICAL HISTORY: He had cardiac cath in the past. Orthopedic surgery. Tonsillectomy. Sinus surgery. MEDICATIONS: Entresto, Toprol, Jardiance, Lipitor, glimepiride, metformin, metoprolol, gabapentin. ALLERGIES: CODEINE. OXYCODONE. FAMILY HISTORY: Diabetes, hypertension. SOCIAL HISTORY: No alcohol use or smoking. REVIEW OF SYSTEMS: Fourteen systems reviewed. No chest pain or palpitations other systems negative or noncontributory as above and per preadmission questionnaire. PHYSICAL EXAMINATION: GENERAL: No acute distress. HEENT: Sclerae nonicteric. NECK: No JVD. CHEST: Equal excursion, nonlabored breathing. CVS: Regular rate and rhythm. ABDOMEN: Soft, mild tenderness right upper quadrant. No peritoneal signs. EXTREMITIES: No significant edema. NEURO: Alert, oriented, moving extremities symmetrically. No gross motor deficits noted. IMPRESSION: Symptomatic cholelithiasis, chronic cholecystitis. I feel the patient would benefit from cholecystectomy. Shown the gallbladder pamphlet and risk sheet, explained the procedure in detail including but not limited to bleeding or infection, risk of trocar injury or hernia, risk of bowel, bladder or blood vessel injury possibly requiring further procedure either open or ERCP. General risk of anesthesia, deep venous thrombosis, pulmonary embolism, pneumonia, risk of pain, bloating, constipation and/or loose stools possibly chronic in nature, possibility procedure may not improve his symptoms may need other studies or procedures or other work up, possibility of an open procedure. He understands all the above but not limited to and will proceed with outpatient laparoscopic cholecystectomy possible open.
[~2019-12-06 09:31] MED LIST: Lactated Ringers 1,000 ML IV ONE; Lactated Ringers 1,000 ML IV SCH; MEFOXIN 2 GM PREMIX** 2 GM/50 ML ML IV ONE; Sensorcaine 0.25% 10 ML ONE
[2019-12-06] MEDS ORDERED: Zemuron 100 MG/10 ML ONE ×2 (11:05→12:06)
[2019-12-06] MEDS ORDERED: DIPRIVAN 200 MG/20 ML IV ONE (11:05)
[2019-12-06] MEDS ORDERED: Versed 2 MG/2 ML Injection ONE (11:06)
[2019-12-06] MEDS ORDERED: SUBLIMAZE 250 MCG/5 ML ONE (11:06)
[2019-12-06] MEDS ORDERED: Quelicin Fliptop 200 MG/10 ML ONE (12:01)
[2019-12-06] MEDS ORDERED: BRIDION 200MG/2ML IV ONE (12:12)
[2019-12-06] MEDS ORDERED: ROBINUL ONE (12:17)
[2019-12-06] MEDS ORDERED: MORPHINE SULFATE 10 MG/ML ONE (12:52)
[2019-12-06] MEDS ORDERED: SUBLIMAZE 100 MCG/2 ML ONE (12:52)
[2019-12-06] MEDS ORDERED: Compazine 10 MG/2 ML IV ONE (13:31)
[2019-12-06 14:19] VITALS: PULSE 61; O2SAT 94
[2019-12-06 14:40] VITALS: BP 166/87
--- NOTE | 2019-12-06 14:56 | OP ---
SURGERY DATE/TIME: 12/06/2019 1141 PREOPERATIVE DIAGNOSIS: Symptomatic cholelithiasis, chronic cholecystitis. POSTOPERATIVE DIAGNOSIS: Symptomatic cholelithiasis, chronic cholecystitis. PROCEDURE: Laparoscopic cholecystectomy. SURGEON: Dr. Andrea Garcia. ANESTHESIA: General. ESTIMATED BLOOD LOSS: Minimal. INDICATIONS: As noted above. Risks and benefits explained in detail but not limited to and consent obtained. DESCRIPTION OF PROCEDURE AND FINDINGS: The patient was taken to the operating room. General anesthesia induced. Abdomen prepped and draped in the usual sterile fashion. After official time out and no disagreement with planned procedure, a transverse incision made at the supraumbilical area. Fascia grasped and pulled upward. Veress needle inserted and tested with saline. Pneumoperitoneum accomplished insufflating opening pressure of 0-15. A 5 mm bladeless port and camera inserted without difficulty followed by two - 5 mm right upper quadrant ports and 11 mm epigastric port. There was no evidence of any intraabdominal injury secondary to trocar insertion. Gallbladder grasped, retracted over the edge of the liver and laterally away from Calot's triangle. Fibrofatty chronic inflammation. Dissecting posterior, lateral to anterior fashion slowly and carefully the cystic duct and infundibular area slowly and carefully well skeletonized until the critical view obtained both anteriorly and posteriorly. Once this was accomplished the cystic duct and cystic artery isolated until critical view obtained both anteriorly and posteriorly. Once this is accomplished they were clipped x3 and divided in usual fashion. It should be noted that the gallbladder was quite vascular required clipping several oozing little side branches off the cystic area directly on the gallbladder wall as necessary. Again this is all accomplished directly on the gallbladder wall. Gallbladder is dissected free from its dense attachments to the liver bed. Just prior to releasing from final attachments to the anterior edge of the liver, the liver bed re-inspected. Clips noted in place cystic duct and cystic artery stumps. No signs of any active bleeding or bile leakage. Gallbladder released from final attachments, pulled up in the epigastrium and decompressed of bile. Aditya used to retrieve a little stone impacted in the fascial area allowing the gallbladder to be pulled free and passed off. Copious amount of irrigation accomplished lateral to the liver and subhepatic space irrigating until clear. Liver bed re-inspected. Clips noted to be in place in cystic duct and cystic artery stump. No signs of any active bleeding or bile leakage. It was felt there is no benefit from drain placement. Fascial defect 11 mm port site closed with puncture closure device under direct vision with the camera. Pneumoperitoneum decompressed. The wound irrigated out. Skin incision closed with 4-0 Vicryl. Steri-Strips and sterile dressing applied. Findings discussed with the family out in the waiting area.
== END 2019-12-06 14:50 | disposition home or self-care (01) ==
LOC: SDC 09:31
PROVIDERS: ATTEND Surgery
DX: K80.10 Calculus of gallbladder with chronic cholecystitis without obstruction (principal); E11.9 Type 2 diabetes mellitus without complications; I10 Essential (primary) hypertension; E03.9 Hypothyroidism, unspecified; I51.9 Heart disease, unspecified; Z79.899 Other long term (current) drug therapy
CPT/HCPCS: 82962; 88304; J0330; J0694; J2250; J2270; J2704; J3010

== ENCOUNTER 2025-07-25 06:45 | Day surgery (SDC) | payer MEDICARE, BC ==
[2025-07-25] MEDS ORDERED: CEFAZOLIN SODIUM ONE (07:04)
[2025-07-25] MEDS: Lactated Ringers 1,000 ML IV SCH (07:15)
[2025-07-25] MEDS: NEURONTIN PO ONE (07:15)
[2025-07-25] MEDS: celeBREX 100 MG PO ONE (07:15)
[2025-07-25] MEDS: TYLENOL EXTRA STRENGTH 500 MG PO ONE (07:16)
[2025-07-25 07:39] LABS: BASOPHIL % 0.7 % (0.2-1.2); Basophil (Absolute #) 0.05 x10^3/uL (0.01-0.08); Eosinophil (Absolute #) 0.12 x10^3/uL (0.04-0.54); Hematocrit 50.6 % (40.1-51.0); Hemoglobin 16.6 g/dL (13.7-17.5); IMMATURE GRAN # 0.02 x10^3u/L (0.001-0.031); IMMATURE GRAN % 0.3 % (0.001-0.429); Lymphocyte (Absolute #) 2.19 x10^3/uL (1.32-3.57); Mean Corpuscular Hemoglobin 29.6 pg (25.7-32.2); Mean Corpuscular Hgb Concent. 32.8 g/dL (32.3-36.5); Monocyte (Absolute #) 0.72 x10^3/uL (0.30-0.82); NUCLEATED RBC # 0.00 x10^3u/L (0.00-0.012); NUCLEATED RBC % 0.0 % (0.00-0.2); Platelet Count 187 x10^3/uL (163-337); Red Blood Count 5.60 x10^6/uL (4.63-6.08); White Blood Count 7.7 x10^3/uL (4.23-9.07)
[2025-07-25 07:44] VITALS: RESP 18
--- NOTE | 2025-07-25 08:15 | XRAY ---
CLINICAL HISTORY: pre surgery COMPARISON: No prior studies available for comparison. TECHNIQUE: X-ray images of the chest were obtained in the anteroposterior (AP) projection. FINDINGS: Pulmonary Parenchyma: The lungs are clear bilaterally. There is no evidence of consolidation, collapse, or focal opacities. No pulmonary nodules are identified. There is no evidence of pleural effusion or pleural thickening. Heart and Mediastinum: The heart size and shape are normal. There is no mediastinal widening or masses. There is no hilar or mediastinal lymphadenopathy. The aorta is ectatic with atheromatous calcification of the aortic arch. Bony Thorax: Median sternotomy wires are identified. Soft Tissues: The soft tissues overlying the chest wall are unremarkable. IMPRESSION: No acute cardiopulmonary abnormalities are identified. Electronically Signed by: Kirill Thorpe MD. (07/25/2025 08:14:05 EDT)
[2025-07-25] MEDS ORDERED: Epinephrine Preservative Free 1 MG/ML ONE ×3 (08:45→12:54)
[2025-07-25] MEDS ORDERED: SUBLIMAZE 100 MCG/2 ML ONE (11:11)
[2025-07-25] MEDS ORDERED: Versed 2 MG/2 ML Injection ONE (11:11)
[2025-07-25] MEDS ORDERED: propofoL IV ONE ×2 (11:35→13:36)
[2025-07-25] MEDS ORDERED: Zofran 4 MG/2 ML VIAL ONE (11:49)
[2025-07-25] MEDS ORDERED: ROCURONIUM BROMIDE IV ONE (11:49)
[2025-07-25] MEDS ORDERED: Lactated Ringers 1,000 ML IV ONE (12:21)
[2025-07-25] MEDS ORDERED: Ephedrine Sulfate 50 MG/ML ONE (12:24)
[2025-07-25] MEDS ORDERED: KEFZOL 1 GM ONE (12:33)
[2025-07-25] MEDS ORDERED: BRIDION 200MG/2ML IV ONE (13:26)
[2025-07-25 14:55] VITALS: BP 150/88; PULSE 60; TEMP 97.5; O2SAT 94
--- NOTE | 2025-07-27 10:04 | OP ---
SURGERY DATE/TIME: 07/25/2025 [id number] PREOPERATIVE DIAGNOSIS: Left rotator cuff tear, extent unspecified, with impingement syndrome and acromioclavicular osteoarthritis. POSTOPERATIVE DIAGNOSIS: Full-thickness tear of left rotator cuff with impingement syndrome and acromioclavicular osteoarthritis, degenerative fraying of the glenoid labrum. PROCEDURE: Arthroscopy of the left shoulder with rotator cuff repair, subacromial decompression, and Moustapha procedure, with incidental shaving of the labrum. SURGEON: Bharath Wang II, DO ANESTHESIA: General with block for postoperative pain control. DESCRIPTION OF PROCEDURE AND FINDINGS: The patient was identified and informed consent was obtained. The patient was taken to the operative suite and placed into the supine position on the operating table where the general anesthetic was administered after a block had been administered in the preoperative holding area. Once an appropriate level of anesthesia had been obtained, the patient was placed into the right lateral decubitus position with the right side up. Shoulders were rotated back about 20 degrees. Bony prominences were padded and axillary roll placed and at this point the beanbag was then inflated. The left upper extremity was then prepped and draped in the usual sterile fashion. A standard time-out was taken. The arm was then placed into the Star abduction traction device with 40 degrees of lateral opening, 20 degrees of forward flexion, and 12 pounds of longitudinal traction due to the patient's size. At this point, the shoulder was marked for bony landmarks and a standard posterior portal was created. Trocar and cannula were placed into the glenohumeral joint, which was then distended with the arthroscopic pump. An 18-gauge spinal needle identified the level for the anterior portal and this was also created with an 11-blade. The shoulder was then inspected in a systematic fashion beginning with the humeral head and glenoid fossa, which were noted to be intact. The labrum was noted to have some fraying anteriorly. Superior and posterior labrum were intact. Incidental shaving of the anterior labrum was accomplished. Biceps tendon and its anchor were noted to be intact. The glenohumeral ligament were noted to be intact as well. The subscapularis, teres, and infraspinatus were intact. There was a small crescent tear noted on the supraspinatus, which was full-thickness in nature. At this point, the rotator cuff was prepared from the articular side and the scope was then placed into the bursal space where bursoscopy was performed. The patient had a significant amount of hypertrophic bursal tissue with inflammation and bursectomy was performed. Following this, the undersurface of the acromion was denuded of soft tissue and about 2 bur thicknesses of acromion was removed anteriorly, tapering this to a smooth transition posteriorly. The acromioclavicular joint was then isolated and soft tissue was debrided from the acromioclavicular joint and following this, utilizing the bur, about 2 to 2-1/2 bur thicknesses of distal clavicle was resected. At this point then the rotator cuff was easily identified at its tear. It was quite mobile and could be mobilized very easily to its footprint. The edges were roughened and the bony bed was prepared, only partially decorticating to good bleeding bone. Utilizing inverted mattress stitch with a ripstop stitch of FiberTape and then a #2 FiberWire suture, the rotator cuff was repaired back to his anatomic plate with a 4.75 SwiveLock anchor. An excellent repair was noted. The shoulder was irrigated and reinspected. No further pathology was identified. The instrumentation was removed and the portal sites were closed with interrupted 4-0 nylon suture. Adaptics, 4 x 4's, and a sterile dressing applied. The patient was placed into an UltraSling, transferred to the cart and taken to the recovery room in satisfactory condition having tolerated the procedure well.
== END 2025-07-25 13:35 | disposition home or self-care (01) ==
LOC: SDC 06:45
PROVIDERS: ATTEND Orthopaedic Surgery
DX: M75.112 Incomplete rotator cuff tear or rupture of left shoulder, not specified as traumatic (principal); M75.42 Impingement syndrome of left shoulder; M19.012 Primary osteoarthritis, left shoulder; E11.9 Type 2 diabetes mellitus without complications; I10 Essential (primary) hypertension
CPT/HCPCS: 01630; 29824; 29826; 29827; 36415; 64415; 71045; 76942; 82947; 85025; 99100; C1713